=== PATIENT | male | born 1955 | race African-American/Black ===

== ENCOUNTER → 2017-07-29 | Outpatient (CLI) | payer OTHER ==
[~2017-07-29] MED LIST: DIATRIZOATE MEGL/DIATRIZOA SOD 30 ML BTL PO ONE; IOPAMIDOL 370 MG/ML 200 ML INFUS..BTL INJ ONE; SODIUM CHLORIDE 0.9% 50ML 50 ML ONE
[2017-07-29 08:24] LABS: BLOOD UREA NITROGEN 12 mg/dL (7-26); BUN/CREATININE RATIO 14 (6-25); CREATININE, SERUM 0.87 mg/dL (0.72-1.25); EST GLOMERULAR FILTRATION RATE > 60 ML/MIN (60-)
--- NOTE | 2017-07-29 09:22 | Diagnostic Imaging Report ---
PROCEDURE:CT ABDOMEN AND PELVIS WITH CONTRAST COMPARISON:Patients [facility], US, US RETROPERITONEAL ( KIDNEY )., 10/31/2016, 15:37. INDICATIONS:ABDOMINAL PAIN TECHNIQUE: Routine protocol limit CT abdomen and pelvis after administration of 100 mL Isovue-370 intravenous contrast and 900 mL dilute positive enteric contrast. Multiplanar reformatted images. DLP: 777.58 FINDINGS: Clear lung bases. No pleural effusions. Normal heart size. Liver: Normal Gallbladder: Cholecystectomy. No bile duct dilation. Pancreas: Normal Spleen: Normal Adrenal glands: Normal Kidneys: 1.8 cm focus of cortical thinning at the right inferior pole, with a 1.4 cm central low attenuation nodule in keeping with a cyst or sequela of infarct. 0.4 cm right inferior pole stone Otherwise, normal bilaterally. Ureters and urinary bladder: Normal Prostate and seminal vesicles: Normal Bowel: Normal caliber. Normal appendix. Mild sigmoid diverticulosis. Peritoneum: Normal Vasculature: Mild scattered atherosclerosis. Normal caliber. Lymph nodes: Normal Skeleton: Intact. Mild L5-S1 degenerative disc disease. Soft tissues: Normal CONCLUSION: 1. Sigmoid diverticulosis. No CT evidence of diverticulitis. 2. Nonobstructive 4 mm right inferior pole nephrolithiasis. 3. Small right inferior pole simple cyst unchanged from October 2016. Dictated by: Christian Quezada M.D. on 07/29/2017 at 9:24 Electronically approved by: Christian Quezada M.D. on 07/29/2017 at 9:24
== END ==
LOC: CT 07:41
PROVIDERS: ATTEND Emergency Medicine
DX: R10.9 Unspecified abdominal pain (principal)
CPT/HCPCS: 36415; 74177; 82565; 84520; Q9967

== ENCOUNTER → 2017-11-20 | Outpatient (CLI) | payer OTHER | LOC: CARD 13:33 | PROVIDERS: ATTEND Emergency Medicine | DX: I65.29 Occlusion and stenosis of unspecified carotid artery (principal) | CPT/HCPCS: 93880 ==

== ENCOUNTER → 2018-09-01 | Outpatient (CLI) | payer MEDICARE, OTHER ==
--- NOTE | 2018-09-01 13:15 | Diagnostic Imaging Report ---
Exam: Left hip 2 views History: Pain Comparison: None. Findings: No fracture. Mild degenerative arthrosis of the hips most prominent medially. Enthesophyte change overlying the left greater trochanter. Impression: No acute osseous abnormality Mild degenerative arthrosis of the hips Signed by: Dr. Jaime Morfin M.D. on 09/01/2018 1:12 PM
--- NOTE | 2018-09-01 13:50 | Diagnostic Imaging Report ---
Exam: Head CT without contrast History: Headache Comparison studies: None Technique: Axial images were obtained from the skull base to the vertex. Coronal and sagittal images reconstructed from the axial data. Dose modulation, iterative reconstruction, and/or weight based adjustment of the mA/kV was utilized to reduce the radiation dose to as low as reasonably achievable. Radiation dose: Total DLP: 921 mGy*cm. Estimated effective dose: DLP x 0.015 Intravenous contrast: None Findings: Scalp: No abnormalities. Bones: No fractures, blastic or lytic lesions. Brain sulci: Appropriate for age. Ventricles: Normal in size and configuration. No hydrocephalus. Extra-axial spaces: No masses, no fluid collection. Parenchyma: No abnormal densities. No masses, hemorrhage, acute or chronic vascular insults. Sellar/suprasellar region: No abnormalities. Craniocervical junction: Patent foramen magnum. No Chiari one malformation. Incidental findings: Atherosclerotic calcifications in the carotid siphons and in the intradural vertebral arteries. IMPRESSION: No acute intracranial abnormalities. Signed by: Dr. Brian Ocampo M.D. on 09/01/2018 1:47 PM
== END ==
LOC: CT 12:05
PROVIDERS: ATTEND Emergency Medicine
DX: R51 Headache (principal); M25.552 Pain in left hip
CPT/HCPCS: 70450

== ENCOUNTER → 2018-09-17 | Outpatient (CLI) | payer MEDICARE, OTHER | LOC: CARD 13:58 | PROVIDERS: ATTEND Emergency Medicine | DX: I70.90 Unspecified atherosclerosis (principal) | CPT/HCPCS: 93880 ==

== ENCOUNTER → 2020-10-22 | Outpatient (CLI) | payer MEDICARE, OTHER | LOC: MRI 10:40 | PROVIDERS: ATTEND Emergency Medicine | DX: M25.511 Pain in right shoulder (principal) ==

== ENCOUNTER → 2020-11-08 | Outpatient (CLI) | payer MEDICARE, OTHER ==
[~2020-11-08] MED LIST changes: -DIATRIZOATE MEGL/DIATRIZOA SOD 30 ML BTL PO ONE; +GADOBENATE DIMEGLUMINE 1 ML IV ONE; +IOPAMIDOL 200 MG/ML 20 ML VIAL IT ONE; -IOPAMIDOL 370 MG/ML 200 ML INFUS..BTL INJ ONE; +LIDOCAINE HCL 1% LOCAL INJ 20 ML VIAL ONE; -SODIUM CHLORIDE 0.9% 50ML 50 ML ONE
== END ==
LOC: DX 08:24
PROVIDERS: ATTEND Orthopaedic Surgery
DX: M75.101 Unspecified rotator cuff tear or rupture of right shoulder, not specified as traumatic (principal)
CPT/HCPCS: 20610; 23350; 73222; A9577; J2001; Q9967

== ENCOUNTER → 2021-03-07 | Outpatient (CLI) | payer MEDICARE, OTHER | LOC: RAD 08:38 | PROVIDERS: ATTEND Emergency Medicine | DX: R22.32 Localized swelling, mass and lump, left upper limb (principal); Z86.718 Personal history of other venous thrombosis and embolism | CPT/HCPCS: 93971 ==